=== PATIENT | female | born 1950 | race Caucasian/White ===

== ENCOUNTER → 2021-12-10 | Outpatient (CLI) | payer MEDICARE, BC, SELFPAY ==
--- NOTE | 2021-12-10 11:23 | RAD_ITS ---
INDICATION: CALCULUS OF URETER EXAMINATION/TECHNIQUE: X-RAY - XR Abdomen 1 View COMPARISON: None FINDINGS: BOWEL GAS PATTERN: Normal nonobstructive bowel gas pattern. FREE AIR: Not assessed on a single supine view. RADIOPAQUE FOREIGN BODIES: None. CALCIFICATIONS: None. LOWER CHEST: No acute findings. BONES AND SOFT TISSUES: No acute findings. RAD/Abdomen Single View IMPRESSION: No renal calculi. Electronically Signed: David Dalton, at 14:26 EDT ,
== END | disposition home or self-care (01) ==
LOC: RAD 11:04
PROVIDERS: PCP Preventive Medicine Occupational Medicine; Visit Provider Urology
DX: N20.1 Calculus of ureter (principal)
CPT/HCPCS: 74018

== ENCOUNTER 2024-08-16 10:30 | Outpatient (RCR) | payer MEDICARE, BC, SELFPAY ==
[2024-08-09 10:18] VITALS: BP 144/58; PULSE 61; RESP 18; TEMP 36.6
--- NOTE | 2024-08-09 11:13 | PCM.WC.HP ---
History of Present Illness Date of Service: 08/09/24 Chief Complaint: Left leg wound History of Wound: Ms. Mcnamara is a 74-year-old who presents to the wound center due to nonhealing left leg wound. Slipped 2 weeks ago while getting out of her son's truck. Sustained injury to her left lower extremity. Due to size, took her to the emergency room where she had it cleaned and was also given antibiotics which she states that she completed a few days ago. states that he has been cleaning it daily and applying Vaseline. They were concerned that it was not healing so presented here. History of diabetes mellitus type 2, she believes that her most recent A1c was 6.9. No tobacco abuse. Feels well for the most part. Denies chills, fever, change in bowel habit or any other concerns at this time. [facility] Medical History (Updated 08/09/24 @ 11:[address] Adele Jacques MD) Type 2 diabetes mellitus Non-healing wound of lower extremity Open wound of lower extremity with complication Home Medications ?Medication ?Instructions ?Recorded ?Last Taken ?Type atorvastatin 20 mg tablet mg DAILY 08/09/24 08/09/24 History cephalexin 500 mg capsule 500 mg PO 08/09/24 Unknown History gabapentin 400 mg capsule mg 08/09/24 Unknown History losartan 25 mg tablet mg DAILY 08/09/24 Unknown History metformin 500 mg tablet mg 08/09/24 Unknown History ROS Constitutional Constitutional: Denies body ache(s), chills, fatigue, fever(s), headache(s) or poor appetite Eyes Eyes: Denies change in eye color, change in vision, discharge from eye(s), discongugate gaze, double vision or excessive blinking ENT HEENT: Denies dysphagia, ear discharge, epistaxis, facial pain, foreign body in nose, halitosis or hearing loss Cardiovascular Cardiovascular: Denies abdominal bloating, abdominal edema, bluish discoloration of hand/feet, chest pain or dyspnea at rest Respiratory/Chest Respiratory/Chest: Denies difficulty clearing secretions, dusky skin, excessive phlegm production, hemoptysis, hoarseness or inability to speak Gastrointestinal Gastrointestinal: Denies abdominal pain, bloating, change in bowel habits, chewing difficulty, coffee ground emesis or fecal incontinence Genitourinary Genitourinary: Denies abdominal discomfort, anuria, contractions, difficulty urinating or flank pain Musculoskeletal Musculoskeletal: Reports extremity pain and limited range of motion; Denies muscle spasms, muscle weakness, numbness, tingling or tremors Integumentary Integumentary: Reports wounds; Denies bleeding lesions, change in hair, dry skin, furuncle, hirsutism or jaundice Neurologic Neurologic: Denies abnormal hearing, abnormal movements, abnormal speech, behavior changes, burning sensations, focal weakness, memory loss or seizures Psychiatric Psychiatric: Denies auditory hallucinations, behavioral changes, cognitive impairment, difficulty concentrating, hallucinations, irritability or memory loss Endocrine Endocrinology: Denies cold intolerance, deepening of the voice, excessive sweating, fatigue, heat intolerance or increase in ring/shoe/hat size Hematologic/Lymphatic Hematologic/Lymphatic: Denies anemia, easy bleeding or easy bruising Allergic/Immunologic Allergic/Immunologic: Denies throat swelling, tongue swelling, urticaria, eczemia or wheezing Vital Signs Vital Signs Vital Signs: 08/09/24 10:18 Temperature 98 F Temperature Source Temporal Pulse Rate 61 Respiratory Rate 18 Blood Pressure 144/58 H Blood Pressure Mean 86 Blood Pressure Source Monitor Blood Pressure Position Sitting Blood Pressure Location Left Arm Physical Exam Const alert, oriented x3 and no apparent distress General Appearance: cooperative and comfortable HEENT normocephalic, head/scalp atraumatic and hearing grossly normal bilaterally Eyes EOMs intact bilaterally Neck full ROM General: normal visual inspection Resp normal respiratory effort and normal air movement Effort and Inspection: able to speak in complete sentences Cardio regular rate, regular rhythm, S1 normal heart sound and S2 normal heart sound GI soft to palpation and non-tender Extremity General Extremity: edema Skin Wounds: wounds noted size Size: See clinical note, bed with slough, margins well approximated, no odor, open and surrounding erythema Neuro oriented x3, CN's II-XII intact bilaterally and moves all extremities Psych mental status grossly normal, thought process normal, cooperative and affect normal Debridement Note Debridement Note Wound debrided: Left lower extremity (superior) Anesthesia Used: 5% Lidocaine Gel Depth: Down to and including healthy tissue and in the subcutaneous layer Percentage of wound debrided: 100 Instrument Used: 7mm curette Tissue Removed: Slough and devitalized tissue Severity: Fat Layer Exposed Amount of bleeding with debridement: Mild Bleeding Controlled with: Pressure Patient tolerated procedure: Patient tolerated procedure well Post-Debridement Measurements and Additional Note: Post-Debridement Measurements/Treatment WC - Nurse 1 - General Ulcer Assessment Start: 08/09/24 10:06 Freq: Status: Active Protocol: JASMYNE Activity Type Activity Date Activity User E-sign Co-sign Detail Recorded Client Recorded Date Recorded By Document 08/09/24 10:18 [place] [id number] 08/09/24 10:32 W[place] 08/09/24 10:18 WC - Today's Visit Information Type of service Initial Visit Arrival Mode Ambulatory Accompanied by Patient Identification Verified (Name & Yes ) Safety Precautions Fall Prevention Finger Stick Blood Sugar(mg/dl) (if 124 indicated): Blood Sugar Stated by Patient Vital Signs Temperature (97.8 F-99.1 F) 98 F Temperature Source Temporal Pulse Rate (60-100) 61 Pulse Location Monitor Respiratory Rate (12-18) 18 Respiratory rate source Observation Blood Pressure (90/60-120/80) 144/58 H Blood Pressure Mean 86 Source Monitor Position Sitting Blood Pressure Location Left Arm History Since Last Visit- (Skip if this is Patient's initial visit) Left Footwear Regular Shoe Right Footwear Regular Shoe Pain Scale: 0-10 Numeric Is Patient Pain Free? No NACHO - Nurse 1 - General Ulcer Measurement Start: 08/09/24 10:06 Freq: Status: Active Protocol: Activity Type Activity Date Activity User E-sign Co-sign Detail Recorded Client Recorded Date Recorded By Document 08/09/24 10:18 W[place] [id number] 08/09/24 10:32 W[place] 08/09/24 10:18 Wound Center Nurse 1 #2 Left Inferior Moreno -Current Size (cm) - Length 2.5 -Current Size (cm) - Width 3.0 -Current Size (cm) - Depth 0.1 -Total Square Cm 7.50 -Date of Last Picture (Recall this 08/09/24 field) -Photo Taken Yes -Tunneling No -Undermining/Tunneling No -Circular Undermining No -Exudate Amt Medium -Exudate Type Serosanguineous -Wound Margin Flat & Intact -Granulation Amt Medium (34-66%) -Granulation Quality Pale,[place] -Necrosis Amt Medium (34-66%) -Necrotic Tissue Type Adherent Slough -Texture (Sheela-wound Skin Appearance) Assessed, Induration, Localized Edema -Moisture (Sheela-wound Skin Appearance) Assessed, Maceration -Color (Sheela-wound Skin Appearance) Assessed, Hemosiderin Staining -Temperature (Sheela-wound Skin No Abnormality Appearance) (Pt Warm) -Tenderness on Palpation (Sheela-wound No Skin Appearance) -Ulcer Cleansing Soap and Water -Foul Odor after Cleansing No -Anesthetic Used 5% Lidocaine Gel #1 Left Superior Moreno -Current Size (cm) - Length 7.1 -Current Size (cm) - Width 4.0 -Current Size (cm) - Depth 0.1 -Total Square Cm 28.40 -Date of Last Picture (Recall this 08/09/24 field) -Photo Taken Yes -Tunneling No -Undermining/Tunneling No -Circular Undermining No -Exudate Amt Medium -Exudate Type Serosanguineous -Wound Margin Flat & Intact -Granulation Amt Medium (34-66%) -Granulation Quality Pale,[place] -Necrosis Amt Medium (34-66%) -Necrotic Tissue Type Adherent Slough -Texture (Sheela-wound Skin Appearance) Assessed, Induration -Moisture (Sheela-wound Skin Appearance) Assessed -Color (Sheela-wound Skin Appearance) Assessed, Hemosiderin Staining -Temperature (Sheela-wound Skin No Abnormality Appearance) (Pt Warm) -Tenderness on Palpation (Sheela-wound No Skin Appearance) -Ulcer Cleansing Soap and Water -Foul Odor after Cleansing No -Anesthetic Used 5% Lidocaine Gel Left Calf (cm) 37 Left Ankle (cm) 22.5 WC - Nurse 2 - General Ulcer CM Notes Start: 08/09/24 10:06 Freq: Status: Active Protocol: Activity Type Activity Date Activity User E-sign Co-sign Detail Recorded Client Recorded Date Recorded By Document 08/09/24 10:45 [id number] 08/09/24 10:59 GM 08/09/24 10:45 Wound Center Nurse 2 #2 Left Inferior Moreno -Time 10:47 -Correct Patient Yes -Correct Side, Site, Position Yes -Correct Procedure Yes -Procedure Performed Yes -Type of Procedure Debridement -Clinical Debridement Subcutaneous -Tissue Removed Subcutaneous -Post Debridement (cm) - Length 2.0 -Post Debridement (cm) - Width 2.5 -Post Debridement (cm) - Depth 0.1 -Total Square (Post) (cm) 5.00 -Area of Debridement (cm) - Length 2.0 -Area of Debridement (cm) - Width 2.5 -Total Square (Area) (cm) 5.00 -Tunneling No -Undermining/Tunneling No -Circular Undermining No -Wound/Ulcer Outcome Not Healed -Ulcer Cleansing Rinsed/ Irrigated with Saline -Foul Odor after Cleansing No -Bioengineered Tissue No -Bleeding Controlled with Pressure -Treatment Response Procedure Tolerated Well -Debridement - Subq, 1st 20sq cm No #1 Left Superior Moreno -Time 10:47 -Correct Patient Yes -Correct Side, Site, Position Yes -Correct Procedure Yes -Procedure Performed Yes -Type of Procedure Debridement -Clinical Debridement Subcutaneous -Tissue Removed Subcutaneous -Post Debridement (cm) - Length 7.0 -Post Debridement (cm) - Width 4.5 -Post Debridement (cm) - Depth 0.1 -Total Square (Post) (cm) 31.50 -Area of Debridement (cm) - Length 7.0 -Area of Debridement (cm) - Width 4.5 -Total Square (Area) (cm) 31.50 -Tunneling No -Undermining/Tunneling No -Circular Undermining No -Wound/Ulcer Outcome Not Healed -Ulcer Cleansing Rinsed/ Irrigated with Saline -Foul Odor after Cleansing No -Bioengineered Tissue No -Bleeding Controlled with Pressure -Treatment Response Procedure Tolerated Well -Debridement - Subq, 1st 20sq cm Yes -Debridement, SubQ, ea addt'l 20sq cm 1 or part thereof Pain Scale: 0-10 Numeric Is Patient Pain Free? Yes Additional Wound Wound debrided: Left lower extremity (inferior) Type of Debridement: Excisional debridement Depth: Down to and including healthy tissue and in the subcutaneous layer Percentage of wound debrided: 100 Instrument Used: 7mm curette Tissue Removed: Slough and devitalized tissue Severity: Fat Layer Exposed Amount of bleeding with debridement: Mild Bleeding Controlled with: Compression and gauze Patient tolerated procedure: Patient tolerated procedure well Charges/Coding Visit Charges Office Visits / Consults: [id number] OV L3 New 30min Procedures Integumentary [id number]: [id number] Steffany subq tissue 20 sq cm/< Add On Codes: 22957 Steffany subq tissue add-on (x1 additional square centimeter debrided, please refer to clinical note.) Assessment/Plan Assessment/Plan (1) Open wound of lower extremity with complication: CODE(S): S81.809A - Unspecified open wound, unspecified lower leg, initial encounter (2) Non-healing wound of lower extremity: CODE(S): S81.809A - Unspecified open wound, unspecified lower leg, initial encounter (3) Type 2 diabetes mellitus: CODE(S): E11.9 - Type 2 diabetes mellitus without complications PLAN: Plan Debridement done as documented above, procedure was fairly well-tolerated. No significant concerns for infection at this time, recently completed antibiotics. For now, Aquacel extra to both ulcers, cover with Adaptic. Change daily to twice daily depending on drainage. History of diabetes mellitus type 2, good control. Continue optimal diabetes control. Optimal protein intake also discussed, patient and significant other voiced understanding. Double layer Tubigrip for edema management. Elevation and exercise as tolerated. The questions were answered and they were advised to let us know if they have any further questions or concerns, they voiced understanding. This note was generated with [employer] dictation software. It may contain incorrect words, spelling, and punctuation that were not noted in checking the note before signing.
--- NOTE | 2024-08-10 14:12 | WC ---
PHOTO 08/09/24 LEFT SUP DAVISON/LEFT INT DAVISON
[2024-08-16 10:47] VITALS: BP 139/78; PULSE 68; RESP 18; TEMP 36.6
--- NOTE | 2024-08-16 13:49 | PCM.WC.PN ---
History of Present Illness Date of Service: 08/16/24 Chief Complaint: Left leg wound History of Wound: Ms. Mcnamara is a 74-year-old who presents to the wound center due to nonhealing left leg wound. Slipped 2 weeks ago while getting out of her son's truck. Sustained injury to her left lower extremity. Due to size, took her to the emergency room where she had it cleaned and was also given antibiotics which she states that she completed a few days ago. states that he has been cleaning it daily and applying Vaseline. They were concerned that it was not healing so presented here. History of diabetes mellitus type 2, she believes that her most recent A1c was 6.9. No tobacco abuse. Feels well for the most part. Denies chills, fever, change in bowel habit or any other concerns at this time. Progress of Wound: No new concerns at this time. Improvement noted. Objective Data Objective Data Vital Signs: Vital Signs Temp Pulse Resp BP O2 Del Method 97.9 F 68 18 139/78 H Room Air 08/16/24 10:47 08/16/24 10:47 08/16/24 10:47 08/16/24 10:47 08/16/24 10:47 Oxygen Delivery Method Room Air Charges/Coding Procedures Integumentary 111xxx-113xx: 72378 Steffany subq tissue 20 sq cm/< Physical Exam Const alert, oriented x3 and no apparent distress General Appearance: cooperative and comfortable HEENT normocephalic, head/scalp atraumatic and hearing grossly normal bilaterally Eyes EOMs intact bilaterally Neck full ROM General: normal visual inspection Resp normal respiratory effort Effort and Inspection: able to speak in complete sentences Extremity General Extremity: edema Skin Wounds: wounds noted size Size: See clinical note, bed granulating well, margins well approximated, no odor, open and surrounding erythema Neuro oriented x3, CN's II-XII intact bilaterally and moves all extremities Psych mental status grossly normal, thought process normal, cooperative and affect normal Debridement Note Debridement Note Wound debrided: Left lower extremity (superior) Type of Debridement: Excisional debridement Anesthesia Used: 5% Lidocaine Gel Depth: Down to and including healthy tissue and in the subcutaneous layer Percentage of wound debrided: 100 Instrument Used: 7mm curette Tissue Removed: Slough and devitalized tissue Severity: Fat Layer Exposed Amount of bleeding with debridement: Mild Bleeding Controlled with: Pressure Patient tolerated procedure: Patient tolerated procedure well Post-Debridement Measurements and Additional Note: Post-Debridement Measurements/Treatment WC - Nurse 1 - General Ulcer Assessment Start: 08/09/24 10:06 Freq: Status: Active Protocol: JASMYNE Activity Type Activity Date Activity User E-sign Co-sign Detail Recorded Client Recorded Date Recorded By Document 08/09/24 10:18 MT [id number] 08/09/24 10:32 MT Document 08/16/24 10:47 KW [id number] 08/16/24 11:06 KW 08/09/24 08/16/24 10:18 10:47 WC - Today's Visit Information Type of service Initial Visit Follow-up Visit (Physician/REIMBURSEMENT REPRESENTATIVE ) Arrival Mode Ambulatory Ambulatory Accompanied by Patient Identification Verified (Name & Yes Yes ) Safety Precautions Fall Prevention Finger Stick Blood Sugar(mg/dl) (if 124 indicated): Blood Sugar Stated by Patient Vital Signs Temperature (97.8 F-99.1 F) 98 F 97.9 F Temperature Source Temporal Temporal Pulse Rate (60-100) 61 68 Pulse Location Monitor Monitor Respiratory Rate (12-18) 18 18 Respiratory rate source Observation Observation Oxygen Delivery Method Room Air Blood Pressure (90/60-120/80) 144/58 H 139/78 H Blood Pressure Mean (mm Hg) 86 98 Source Monitor Monitor Position Sitting Semi-Fowlers Blood Pressure Location Left Arm Left Arm History Since Last Visit- (Skip if this is Patient's initial visit) Have you changed medications since your No last visit? Any new allergies or adverse reactions No Had a fall/change in ADL's that may No increase risk of falls Signs or symptoms of abuse and/or No neglect since last visit Have you been in the hospital since your No last visit? Has dressing in place as prescribed Yes Has compression in place as prescribed Yes Has offloadiing in place as prescribed N/A Experienced any changes in pain level or No management Left Footwear Regular Shoe Regular Shoe Right Footwear Regular Shoe Regular Shoe Pain Scale: 0-10 Numeric Is Patient Pain Free? No No NACHO Merchant Nurse 1 - General Ulcer Measurement Start: 08/09/24 10:06 Freq: Status: Active Protocol: Activity Type Activity Date Activity User E-sign Co-sign Detail Recorded Client Recorded Date Recorded By Document 08/09/24 10:18 MT [id number] 08/09/24 10:32 MT Document 08/16/24 10:47 KW [id number] 08/16/24 11:06 KW 08/09/24 08/16/24 10:18 10:47 Wound Center Nurse 1 #2 Left Inferior Moreno -Current Size (cm) - Length 2.5 1.5 -Current Size (cm) - Width 3.0 1.6 -Current Size (cm) - Depth 0.1 0.1 -Total Square Cm 7.50 2.40 -Date of Last Picture (Recall this 08/09/24 field) -Photo Taken Yes -Tunneling No -Undermining/Tunneling No -Circular Undermining No -Exudate Amt Medium Medium -Exudate Type Serosanguineous Serosanguineous -Wound Margin Flat & Intact Distinct, Outline Attached -Granulation Amt Medium (34-66%) Large (67-100%) -Granulation Quality Pale,Francisco Red -Necrosis Amt Medium (34-66%) Small (1-33%) -Necrotic Tissue Type Adherent Slough Eschar -Texture (Sheela-wound Skin Appearance) Assessed, Assessed Induration, Localized Edema -Moisture (Sheela-wound Skin Appearance) Assessed, Assessed Maceration -Color (Sheela-wound Skin Appearance) Assessed, Assessed, Hemosiderin Hemosiderin Staining Staining -Temperature (Sheela-wound Skin No Abnormality No Abnormality Appearance) (Pt Warm) (Pt Warm) -Tenderness on Palpation (Sheela-wound No No Skin Appearance) -Ulcer Cleansing Soap and Water Soap and Water -Foul Odor after Cleansing No No -Anesthetic Used 5% Lidocaine 4% Lidocaine Gel Solution,5% Lidocaine Gel #1 Left Superior [place] -Current Size (cm) - Length 7.1 5.2 -Current Size (cm) - Width 4.0 2.9 -Current Size (cm) - Depth 0.1 0.1 -Total Square Cm 28.40 15.08 -Date of Last Picture (Recall this 08/09/24 field) -Photo Taken Yes -Tunneling No -Undermining/Tunneling No -Circular Undermining No -Exudate Amt Medium Small -Exudate Type Serosanguineous Serosanguineous -Wound Margin Flat & Intact Distinct, Outline Attached -Granulation Amt Medium (34-66%) Large (67-100%) -Granulation Quality Pale,Francisco Francisco,Red -Necrosis Amt Medium (34-66%) Small (1-33%) -Necrotic Tissue Type Adherent Slough Eschar -Texture (Sheela-wound Skin Appearance) Assessed, Assessed Induration -Moisture (Sheela-wound Skin Appearance) Assessed Assessed -Color (Sheela-wound Skin Appearance) Assessed, Assessed, Hemosiderin Erythema, Staining Hemosiderin Staining -Temperature (Sheela-wound Skin No Abnormality No Abnormality Appearance) (Pt Warm) (Pt Warm) -Tenderness on Palpation (Sheela-wound No No Skin Appearance) -Ulcer Cleansing Soap and Water Soap and Water -Foul Odor after Cleansing No No -Anesthetic Used 5% Lidocaine 4% Lidocaine Gel Solution,5% Lidocaine Gel Left Calf (cm) 37 37 Left Ankle (cm) 22.5 22 WC - Nurse 2 - General Ulcer CM Notes Start: 08/09/24 10:06 Freq: Status: Active Protocol: Activity Type Activity Date Activity User E-sign Co-sign Detail Recorded Client Recorded Date Recorded By Document 08/09/24 10:45 [id number] 08/09/24 10:59 Document 08/16/24 11:19 [id number] 08/16/24 11:26 08/09/24 08/16/24 10:45 11:19 Wound Center Nurse 2 #2 Left Inferior Moreno -Time 10:47 11:23 -Correct Patient Yes Yes -Correct Side, Site, Position Yes Yes -Correct Procedure Yes Yes -Procedure Performed Yes Yes -Type of Procedure Debridement Debridement -Clinical Debridement Subcutaneous Subcutaneous -Tissue Removed Subcutaneous Subcutaneous -Post Debridement (cm) - Length 2.0 1.6 -Post Debridement (cm) - Width 2.5 2.0 -Post Debridement (cm) - Depth 0.1 0.1 -Total Square (Post) (cm) 5.00 3.20 -Area of Debridement (cm) - Length 2.0 1.6 -Area of Debridement (cm) - Width 2.5 2.0 -Total Square (Area) (cm) 5.00 3.20 -Tunneling No No -Undermining/Tunneling No No -Circular Undermining No No -Wound/Ulcer Outcome Not Healed Not Healed -Ulcer Cleansing Rinsed/ Rinsed/ Irrigated with Irrigated with Saline Saline -Foul Odor after Cleansing No No -Bioengineered Tissue No No -Bleeding Controlled with Pressure Pressure -Treatment Response Procedure Procedure Tolerated Well Tolerated Well -Debridement - Subq, 1st 20sq cm No No #1 Left Superior Moreno -Time 10:47 11:23 -Correct Patient Yes Yes -Correct Side, Site, Position Yes Yes -Correct Procedure Yes Yes -Procedure Performed Yes Yes -Type of Procedure Debridement Debridement -Clinical Debridement Subcutaneous Subcutaneous -Tissue Removed Subcutaneous Subcutaneous -Post Debridement (cm) - Length 7.0 5.0 -Post Debridement (cm) - Width 4.5 3.4 -Post Debridement (cm) - Depth 0.1 0.1 -Total Square (Post) (cm) 31.50 17.00 -Area of Debridement (cm) - Length 7.0 5.0 -Area of Debridement (cm) - Width 4.5 3.4 -Total Square (Area) (cm) 31.50 17.00 -Tunneling No No -Undermining/Tunneling No No -Circular Undermining No No -Wound/Ulcer Outcome Not Healed Not Healed -Ulcer Cleansing Rinsed/ Rinsed/ Irrigated with Irrigated with Saline Saline -Foul Odor after Cleansing No No -Bioengineered Tissue No No -Bleeding Controlled with Pressure Pressure -Treatment Response Procedure Procedure Tolerated Well Tolerated Well -Debridement - Subq, 1st 20sq cm Yes Yes -Debridement, SubQ, ea addt'l 20sq cm 1 1 or part thereof Pain Scale: 0-10 Numeric Is Patient Pain Free? Yes Yes - Nurse 3 - General Ulcer D/C NN Start: 08/09/24 10:06 Freq: Status: Active Protocol: Activity Type Activity Date Activity User E-sign Co-sign Detail Recorded Client Recorded Date Recorded By Document 08/09/24 11:18 [id number] 08/09/24 11:27 Document 08/16/24 11:53 [id number] 08/16/24 11:54 08/09/24 08/16/24 11:18 11:53 Wound Care Center Nurse 3 #2 Left Inferior Moreno -Ulcer Cleansing Not Cleansed -Foul Odor after Cleansing No -Primary Dressing Applied Aquacel Extra, Aquacel Extra NonAdherent Contact Layer -Primary Dressing Covered/Secured with Dry Gauze & Roll Gauze, Secured with Tape -Aquacel Extra 1 1 #1 Left Superior Moreno -Ulcer Cleansing Not Cleansed -Foul Odor after Cleansing No -Primary Dressing Applied Aquacel Extra NonAdherent Contact Layer -Other Dressing aquacel extra -Primary Dressing Covered/Secured with Dry Gauze & Roll Gauze, Secured with Tape -Aquacel Extra 1 Left -Lotion applied to leg before No compression wrap -Tubular Bandage Double Layer Double Layer -Size of Tubigrip Used Size E Size E -Size E ($) 2 2 Pain Scale: 0-10 Numeric Is Patient Pain Free? Yes Yes WC - Visit Discharge Discharge Condition Stable Stable Ambulatory Status Ambulatory Ambulatory Transportation Private Auto Private Auto Medication Reconcilliation completed & No provided to patient/care provider Clinical Summary of Care Provided Yes Additional Wound Wound debrided: Left lower extremity (inferior) Type of Debridement: Excisional debridement Anesthesia Used: 5% Lidocaine Gel Depth: Down to and including healthy tissue and in the subcutaneous layer Percentage of wound debrided: 100 Instrument Used: 7mm curette Tissue Removed: Slough and devitalized tissue Severity: Fat Layer Exposed Amount of bleeding with debridement: Mild Bleeding Controlled with: Pressure Patient tolerated procedure: Patient tolerated procedure well Assessment/Plan Assessment/Plan (1) Open wound of lower extremity with complication: CODE(S): S81.809A - Unspecified open wound, unspecified lower leg, initial encounter QUALIFIERS: Encounter type: subsequent encounter Laterality: left Qualified Code(s): S81.802D - Unspecified open wound, left lower leg, subsequent encounter PLAN: Left (2) Non-healing wound of lower extremity: CODE(S): S81.809A - Unspecified open wound, unspecified lower leg, initial encounter QUALIFIERS: Encounter type: subsequent encounter Laterality: left Qualified Code(s): S81.802D - Unspecified open wound, left lower leg, subsequent encounter PLAN: Left (3) Type 2 diabetes mellitus: CODE(S): E11.9 - Type 2 diabetes mellitus without complications PLAN: Plan Debridement done as documented above, procedure was fairly well-tolerated. Improving. No new concerns reported at this time. Continue Aquacel extra, cover with Adaptic and gauze. Change daily. Continue double layer Tubigrip for edema management, leg elevation and exercise as tolerated. Continue other chronic wound care measures. Their questions were answered and they were advised to let us know if they have any further questions or concerns. Follow-up in 2 weeks or sooner if needed. This note was generated with [employer] software. It may contain incorrect words, spelling, and punctuation that were not noted in checking the note before signing.
== END 2024-08-17 23:59 | disposition home or self-care (01) ==
LOC: WC 10:30
PROVIDERS: PCP Preventive Medicine Occupational Medicine; Referring Provider Preventive Medicine Occupational Medicine; Visit Provider Internal Medicine
DX: S81.812A Laceration without foreign body, left lower leg, initial encounter (principal); E11.9 Type 2 diabetes mellitus without complications; V58.4XXA Person boarding or alighting a pick-up truck or van injured in noncollision transport accident, initial encounter; Z79.84 Long term (current) use of oral hypoglycemic drugs; Z79.899 Other long term (current) drug therapy
CPT/HCPCS: 11042; 11045; 99203; G0463

== ENCOUNTER 2024-09-13 09:45 | Outpatient (RCR) | payer MEDICARE, BC, SELFPAY ==
[2024-08-18 02:43] VITALS: BP 139/78; PULSE 68; RESP 18; TEMP 36.6
[2024-08-30 10:32] VITALS: BP 134/64; PULSE 61; RESP 16; TEMP 36.2
--- NOTE | 2024-08-30 13:01 | PN.PCM_ITS ---
History of Present Illness Date of Service: 08/30/24 Chief Complaint: Left leg wound History of Wound: Ms. Mcnamara is a 74-year-old who presents to the wound center due to nonhealing left leg wound. Slipped 2 weeks ago while getting out of her son's truck. Sustained injury to her left lower extremity. Due to size, took her to the emergency room where she had it cleaned and was also given antibiotics which she states that she completed a few days ago. states that he has been cleaning it daily and applying Vaseline. They were concerned that it was not healing so presented here. History of diabetes mellitus type 2, she believes that her most recent A1c was 6.9. No tobacco a buse. Feels well for the most part. Denies chills, fever, change in bowel habit or any other concerns at this time. Progress of Wound: Improving. Minimal area left. No new concerns reported at this time. Objective Data Objective Data Vital Signs: Vital Signs Temp Pulse Resp BP O2 Del Method 97.1 F L 61 16 134/64 H Room Air 08/30/24 10:32 08/30/24 10:32 08/30/24 10:32 08/30/24 10:32 08/30/24 10:32 Oxygen Delivery Method Room Air Charges/Coding Procedures Integumentary 111xxx-113xx: 13997 Steffany subq tissue 20 sq cm/< (Selective debridement done today.) Physical Exam Const alert, oriented x3 and no apparent distress General Appearance: cooperative and comfortable HEENT normocephalic, head/scalp atraumatic and hearing grossly normal bilaterally Eyes EOMs intact bilaterally Neck full ROM General: normal visual inspection Resp normal respiratory effort Effort and Inspection: able to speak in complete sentences Extremity General Extremity: edema Skin Wounds: wounds noted size Size: See clinical note, bed granulating well, margins well approximated, no odor, open and surrounding erythema Neuro oriented x3, CN's II-XII intact bilaterally and moves all extremities Psych mental status grossly normal, thought process normal, cooperative and affect normal Debridement Note Debridement Note Wound debrided: Left lower extremity (superior) Type of Debridement: Selective debridement Anesthesia Used: 4% Lidocaine Solution and 5% Lidocaine Gel Depth: Down to and including healthy tissue Percentage of wound debrided: 100 Tissue Removed: Devitalized tissue Severity: Limited To Skin Breakdown Amount of bleeding with debridement: Mild Bleeding Controlled with: Pressure Patient tolerated procedure: Patient tolerated procedure well Post-Debridement Measurements and Additional Note: Post-Debridement Measurements/Treatment - Nurse 1 - General Ulcer Assessment Start: 08/30/24 10:32 Freq: Status: Active Protocol: JASMYNE Activity Type Activity Date Activity User E-sign Co-sign Detail Recorded Client Recorded Date Recorded By Document 08/30/24 10:32 BRIONNA [id number] 08/30/24 10:50 08/30/24 10:32 - Today's Visit Information Type of service Follow-up Visit (Physician/MANAGER PHARMACEUTICAL ) Arrival Mode Ambulatory Patient Identification Verified (Name & Yes ) Vital Signs Temperature (97.8 F-99.1 F) 97.1 F L Temperature Source Temporal Pulse Rate (60-100) 61 Pulse Location Monitor Respiratory Rate (12-18) 16 Respiratory rate source Observation Oxygen Delivery Method Room Air Blood Pressure (90/60-120/80) 134/64 H Blood Pressure Mean (mm Hg) 87 Source Monitor Position Semi-Fowlers Blood Pressure Location Left Forearm History Since Last Visit- (Skip if this is Patient's initial visit) Have you changed medications since your No last visit? Any new allergies or adverse reactions No Had a fall/change in ADL's that may No increase risk of falls Signs or symptoms of abuse and/or No neglect since last visit Have you been in the hospital since your No last visit? Has dressing in place as prescribed Yes Has compression in place as prescribed Yes Has offloadiing in place as prescribed N/A Experienced any changes in pain level or No management Left Footwear Regular Shoe Right Footwear Regular Shoe Pain Scale: 0-10 Numeric Is Patient Pain Free? Yes - Nurse 1 - General Ulcer Measurement Start: 08/30/24 10:32 Freq: Status: Active Protocol: Activity Type Activity Date Activity User E-sign Co-sign Detail Recorded Client Recorded Date Recorded By Document 08/30/24 10:32 BRIONNA [id number] 08/30/24 10:50 08/30/24 10:32 Wound Center Nurse 1 #2 Left Inferior Moreno -Current Size (cm) - Length 0.6 -Current Size (cm) - Width 1.5 -Current Size (cm) - Depth 0.1 -Total Square Cm 0.90 -Date of Last Picture (Recall this 08/30/24 field) -Epithelialization Large 67-100% -Exudate Amt None Present -Wound Margin Distinct, Outline Attached -Texture (Sheela-wound Skin Appearance) Assessed -Moisture (Sheela-wound Skin Appearance) Assessed -Color (Sheela-wound Skin Appearance) Assessed -Tenderness on Palpation (Sheela-wound No Skin Appearance) -Ulcer Cleansing Soap and Water -Foul Odor after Cleansing No -Anesthetic Used 4% Lidocaine Solution,5% Lidocaine Gel -Wound Comment(s) scabbed #1 Left Superior Moreno -Current Size (cm) - Length 4 -Current Size (cm) - Width 2 -Current Size (cm) - Depth 0.1 -Total Square Cm 8 -Date of Last Picture (Recall this 08/30/24 field) -Epithelialization Large 67-100% -Exudate Amt None Present -Wound Margin Distinct, Outline Attached -Texture (Sheela-wound Skin Appearance) Assessed -Moisture (Sheela-wound Skin Appearance) Assessed -Color (Sheela-wound Skin Appearance) Assessed -Temperature (Sheela-wound Skin No Abnormality Appearance) (Pt Warm) -Tenderness on Palpation (Sheela-wound No Skin Appearance) -Ulcer Cleansing Soap and Water -Foul Odor after Cleansing No -Anesthetic Used 4% Lidocaine Solution,5% Lidocaine Gel -Wound Comment(s) scabbed Left Calf (cm) 36.5 Left Ankle (cm) 21.5 WC - Nurse 2 - General Ulcer CM Notes Start: 08/30/24 10:32 Freq: Status: Active Protocol: Activity Type Activity Date Activity User E-sign Co-sign Detail Recorded Client Recorded Date Recorded By Document 08/30/24 10:54 [id number] 08/30/24 11:01 08/30/24 10:54 Wound Center Nurse 2 #2 Left Inferior Moreno -Time 10:55 -Correct Patient Yes -Correct Side, Site, Position Yes -Correct Procedure No -Procedure Performed No -Wound/Ulcer Outcome Healed- Epithelialized -Ulcer Cleansing Not Cleansed -Foul Odor after Cleansing No -Bioengineered Tissue No -Bleeding Controlled with NA -Offloading No #1 Left Superior Moreno -Time 10:56 -Correct Patient Yes -Correct Side, Site, Position Yes -Correct Procedure Yes -Procedure Performed Yes -Type of Procedure Debridement -Clinical Debridement Epidermis / Dermis -Tissue Removed Epidermis -Post Debridement (cm) - Length 0.4 -Post Debridement (cm) - Width 0.6 -Post Debridement (cm) - Depth 0.1 -Total Square (Post) (cm) 0.24 -Area of Debridement (cm) - Length 0.4 -Area of Debridement (cm) - Width 0.6 -Total Square (Area) (cm) 0.24 -Tunneling No -Undermining/Tunneling No -Circular Undermining No -Wound/Ulcer Outcome Not Healed -Ulcer Cleansing Rinsed/ Irrigated with Saline -Foul Odor after Cleansing No -Bioengineered Tissue No -Bleeding Controlled with Pressure -Treatment Response Procedure Tolerated Well -Debridement - Open, 1st 20sq cm Yes Pain Scale: 0-10 Numeric Is Patient Pain Free? Yes - Nurse 3 - General Ulcer D/C NN Start: 08/30/24 10:32 Freq: Status: Active Protocol: Activity Type Activity Date Activity User E-sign Co-sign Detail Recorded Client Recorded Date Recorded By Document 08/30/24 11:09 [id number] 08/30/24 11:10 08/30/24 11:09 Wound Care Center Nurse 3 #2 Left Inferior Moreno -Ulcer Cleansing Not Cleansed -Foul Odor after Cleansing No -Primary Dressing Applied Aquacel Extra, NonAdherent Contact Layer -Primary Dressing Covered/Secured with Dry Gauze & Roll Gauze, Secured with Tape -Aquacel Extra 1 #1 Left Superior More[place] -Ulcer Cleansing Not Cleansed -Primary Dressing Covered/Secured with Dry Gauze Left -Lotion applied to leg before No compression wrap -Tubular Bandage Double Layer -Size of Tubigrip Used Size E -Size E ($) 4 Pain Scale: 0-10 Numeric Is Patient Pain Free? Yes - Visit Discharge Discharge Condition Stable Ambulatory Status Ambulatory Transportation Private Auto Assessment/Plan Assessment/Plan (1) Open wound of lower extremity with complication: CODE(S): S81.809A - Unspecified open wound, unspecified lower leg, initial encounter QUALIFIERS: Encounter type: subsequent encounter Laterality: left Qualified Code(s): S81.802D - Unspecified open wound, left lower leg, subsequent encounter PLAN: Left (2) Non-healing wound of lower extremity: CODE(S): S81.809A - Unspecified open wound, unspecified lower leg, initial encounter QUALIFIERS: Encounter type: subsequent encounter Laterality: left Qualified Code(s): S81.802D - Unspecified open wound, left lower leg, subsequent encounter PLAN: Left (3) Type 2 diabetes mellitus: CODE(S): E11.9 - Type 2 diabetes mellitus without complications PLAN: Plan Debridement done as documented above, procedure was well-tolerated. Very good improvement since her last visit, very minimal area left. Continue Aquacel extra to open areas, cover with Adaptic and gauze. Change daily. Continue double layer Tubigrip for edema management, leg elevation and exercise as tolerated. Continue other chronic wound care measures. Moisturizing adequately also emphasized, patient and voiced understanding. Their questions were answered and they were advised to let us know if they have any further questions or concerns. Follow-up in 2 weeks or sooner if needed. This note was generated with [employer] dictation software. It may contain incorrect words, spelling, and punctuation that were not noted in checking the note before signing.
--- NOTE | 2024-08-31 09:37 | WC ---
PHOTO 08/30/24 LEFT INT DAVISON
--- NOTE | 2024-08-31 09:38 | WC ---
PHOTO 08/30/24 LEFT SUP DAVISON
[2024-09-13 09:53] VITALS: BP 156/59; PULSE 62; RESP 18; TEMP 36
--- NOTE | 2024-09-13 10:37 | PN.PCM_ITS ---
History of Present Illness Date of Service: 09/13/24 Chief Complaint: Left leg wound History of Wound: Ms. Mcnamara is a 74-year-old who presents to the wound center due to nonhealing left leg wound. Slipped 2 weeks ago while getting out of her son's truck. Sustained injury to her left lower extremity. Due to size, took her to the emergency room where she had it cleaned and was also given antibiotics which she states that she completed a few days ago. states that he has been cleaning it daily and applying Vaseline. They were concerned that it was not healing so presented here. History of diabetes mellitus type 2, she believes that her most recent A1c was 6.9. No tobacco a buse. Feels well for the most part. Denies chills, fever, change in bowel habit or any other concerns at this time. Progress of Wound: No acute concerns at this time. Some superficial areas of opening clustered around. Objective Data Objective Data Vital Signs: Vital Signs Temp Pulse Resp BP O2 Del Method 96.8 F L 62 18 156/59 H Room Air 09/13/24 09:53 09/13/24 09:53 09/13/24 09:53 09/13/24 09:53 08/30/24 10:32 Oxygen Delivery Method Room Air Charges/Coding Procedures Integumentary 111xxx-113xx: 51366 Steffany subq tissue 20 sq cm/< (Superficial/dermal debridement done today.) Physical Exam Const alert, oriented x3 and no apparent distress General Appearance: cooperative and comfortable HEENT normocephalic, head/scalp atraumatic and hearing grossly normal bilaterally Eyes EOMs intact bilaterally Neck full ROM General: normal visual inspection Resp normal respiratory effort Effort and Inspection: able to speak in complete sentences Extremity General Extremity: edema Skin Wounds: wounds noted size Size: See clinical note, bed granulating well, margins well approximated, no odor and open Neuro oriented x3, CN's II-XII intact bilaterally and moves all extremities Psych mental status grossly normal, thought process normal, cooperative and affect normal Debridement Note Debridement Note Wound debrided: Left lower extremity Anesthesia Used: 5% Lidocaine Gel Depth: Down to and including healthy tissue Percentage of wound debrided: 100 Severity: Limited To Skin Breakdown Amount of bleeding with debridement: Mild Bleeding Controlled with: Pressure Patient tolerated procedure: Patient tolerated procedure well Post-Debridement Measurements and Additional Note: Post-Debridement Measurements/Treatment - Nurse 1 - General Ulcer Assessment Start: 08/30/24 10:32 Freq: Status: Active Protocol: JASMYNE Activity Type Activity Date Activity User E-sign Co-sign Detail Recorded Client Recorded Date Recorded By Document 08/30/24 10:32 KW [id number] 08/30/24 10:50 KW Document 09/13/24 09:53 RB [id number] 09/13/24 09:57 RB 08/30/24 09/13/24 10:32 09:53 WC - Today's Visit Information Type of service Follow-up Visit Follow-up Visit (Physician/INTERNET SALES CONSULTANT (Physician/INTERNET SALES CONSULTANT ) ) Arrival Mode Ambulatory Ambulatory Transfer Assistance None Patient Identification Verified (Name & Yes Yes ) Patient Requires Transmission-Based No Precautions Vital Signs Temperature (97.8 F-99.1 F) 97.1 F L 96.8 F L Temperature Source Temporal Temporal Pulse Rate (60-100) 61 62 Pulse Location Monitor Monitor Respiratory Rate (12-18) 16 18 Respiratory rate source Observation Observation Oxygen Delivery Method Room Air Blood Pressure (90/60-120/80) 134/64 H 156/59 H Blood Pressure Mean (mm Hg) 87 91 Source Monitor Monitor Position Semi-Fowlers Semi-Fowlers Blood Pressure Location Left Forearm Left Arm History Since Last Visit- (Skip if this is Patient's initial visit) Have you changed medications since your No No last visit? Any new allergies or adverse reactions No No Had a fall/change in ADL's that may No No increase risk of falls Signs or symptoms of abuse and/or No No neglect since last visit Have you been in the hospital since your No No last visit? Has dressing in place as prescribed Yes Yes Has compression in place as prescribed Yes N/A Has offloadiing in place as prescribed N/A N/A Experienced any changes in pain level or No No management Left Footwear Regular Shoe Right Footwear Regular Shoe Pain Scale: 0-10 Numeric Is Patient Pain Free? Yes Yes - Nurse 1 - General Ulcer Measurement Start: 08/30/24 10:32 Freq: Status: Active Protocol: Activity Type Activity Date Activity User E-sign Co-sign Detail Recorded Client Recorded Date Recorded By Document 08/30/24 10:32 KW [id number] 08/30/24 10:50 KW Document 09/13/24 09:53 RB [id number] 09/13/24 09:57 RB 08/30/24 09/13/24 10:32 09:53 Wound Center Nurse 1 #2 Left Inferior Moreno -Combined with other wound No -Current Size (cm) - Length 0.6 0.1 -Current Size (cm) - Width 1.5 0.1 -Current Size (cm) - Depth 0.1 0.1 -Total Square Cm 0.90 0.01 -Date of Last Picture (Recall this 08/30/24 field) -Photo Taken Yes -Epithelialization Large 67-100% -Tunneling No -Undermining/Tunneling No -Circular Undermining No -Exudate Amt None Present Medium -Exudate Type Serosanguineous -Wound Margin Distinct, Distinct, Outline Outline Attached Attached -Granulation Amt Medium (34-66%) -Granulation Quality [place] -Slough/Fibrin Yes -Necrosis Amt Small (1-33%) -Necrotic Tissue Type Adherent Slough -Structure Exposed N/A -Texture (Sheela-wound Skin Appearance) Assessed Assessed, Scarring -Moisture (Sheela-wound Skin Appearance) Assessed Assessed -Color (Sheela-wound Skin Appearance) Assessed Assessed -Temperature (Sheela-wound Skin No Abnormality Appearance) (Pt Warm) -Tenderness on Palpation (Sheela-wound No No Skin Appearance) -Ulcer Cleansing Soap and Water Wound Cleanser -Foul Odor after Cleansing No No -Anesthetic Used 4% Lidocaine 5% Lidocaine Solution,5% Gel Lidocaine Gel -Wound Comment(s) scabbed #1 Left Superior Moreno -Combined with other wound No -Current Size (cm) - Length 4 0.1 -Current Size (cm) - Width 2 0.1 -Current Size (cm) - Depth 0.1 0.1 -Total Square Cm 8 0.01 -Date of Last Picture (Recall this 08/30/24 field) -Photo Taken Yes -Epithelialization Large 67-100% -Tunneling No -Undermining/Tunneling No -Circular Undermining No -Exudate Amt None Present Medium -Exudate Type Serosanguineous -Wound Margin Distinct, Distinct, Outline Outline Attached Attached -Granulation Amt Medium (34-66%) -Granulation Quality [place] -Slough/Fibrin Yes -Necrosis Amt Medium (34-66%) -Necrotic Tissue Type Adherent Slough -Structure Exposed N/A -Texture (Sheela-wound Skin Appearance) Assessed Assessed, Scarring -Moisture (Sheela-wound Skin Appearance) Assessed Assessed -Color (Sheela-wound Skin Appearance) Assessed Assessed -Temperature (Sheela-wound Skin No Abnormality No Abnormality Appearance) (Pt Warm) (Pt Warm) -Tenderness on Palpation (Sheela-wound No No Skin Appearance) -Ulcer Cleansing Soap and Water Wound Cleanser -Foul Odor after Cleansing No No -Anesthetic Used 4% Lidocaine 5% Lidocaine Solution,5% Gel Lidocaine Gel -Wound Comment(s) scabbed Left Calf (cm) 36.5 Left Ankle (cm) 21.5 WC - Nurse 2 - General Ulcer CM Notes Start: 08/30/24 10:32 Freq: Status: Active Protocol: Activity Type Activity Date Activity User E-sign Co-sign Detail Recorded Client Recorded Date Recorded By Document 08/30/24 10:54 [id number] 08/30/24 11:01 Document 09/13/24 10:18 [id number] 09/13/24 10:22 08/30/24 09/13/24 10:54 10:18 Wound Center Nurse 2 #2 Left Inferior Moreno -Time 10:55 10:18 -Correct Patient Yes Yes -Correct Side, Site, Position Yes Yes -Correct Procedure No No -Procedure Performed No No -Tunneling No -Undermining/Tunneling No -Circular Undermining No -Wound/Ulcer Outcome Healed- Healed- Epithelialized Epithelialized -Ulcer Cleansing Not Cleansed Rinsed/ Irrigated with Saline -Foul Odor after Cleansing No No -Bioengineered Tissue No No -Bleeding Controlled with NA NA -Offloading No #1 Left Superior Moreno -Time 10:56 10:21 -Correct Patient Yes Yes -Correct Side, Site, Position Yes Yes -Correct Procedure Yes Yes -Procedure Performed Yes Yes -Type of Procedure Debridement Debridement -Clinical Debridement Epidermis / Epidermis / Dermis Dermis -Tissue Removed Epidermis Dermis -Post Debridement (cm) - Length 0.4 3.5 -Post Debridement (cm) - Width 0.6 2.0 -Post Debridement (cm) - Depth 0.1 0.1 -Total Square (Post) (cm) 0.24 7.00 -Area of Debridement (cm) - Length 0.4 3.5 -Area of Debridement (cm) - Width 0.6 2.0 -Total Square (Area) (cm) 0.24 7.00 -Tunneling No No -Undermining/Tunneling No No -Circular Undermining No No -Wound/Ulcer Outcome Not Healed Not Healed -Ulcer Cleansing Rinsed/ Rinsed/ Irrigated with Irrigated with Saline Saline -Foul Odor after Cleansing No No -Bioengineered Tissue No No -Bleeding Controlled with Pressure Pressure -Treatment Response Procedure Procedure Tolerated Well Tolerated Well -Debridement - Open, 1st 20sq cm Yes Yes Pain Scale: 0-10 Numeric Is Patient Pain Free? Yes Yes - Nurse 3 - General Ulcer D/C NN Start: 08/30/24 10:32 Freq: Status: Active Protocol: Activity Type Activity Date Activity User E-sign Co-sign Detail Recorded Client Recorded Date Recorded By Document 08/30/24 11:09 [id number] 08/30/24 11:10 08/30/24 11:09 Wound Care Center Nurse 3 #2 Left Inferior Moreno -Ulcer Cleansing Not Cleansed -Foul Odor after Cleansing No -Primary Dressing Applied Aquacel Extra, NonAdherent Contact Layer -Primary Dressing Covered/Secured with Dry Gauze & Roll Gauze, Secured with Tape -Aquacel Extra 1 #1 Left Superior Moreno -Ulcer Cleansing Not Cleansed -Primary Dressing Covered/Secured with Dry Gauze Left -Lotion applied to leg before No compression wrap -Tubular Bandage Double Layer -Size of Tubigrip Used Size E -Size E ($) 4 Pain Scale: 0-10 Numeric Is Patient Pain Free? Yes - Visit Discharge Discharge Condition Stable Ambulatory Status Ambulatory Transportation Private Auto Assessment/Plan Assessment/Plan (1) Open wound of lower extremity with complication: CODE(S): S81.809A - Unspecified open wound, unspecified lower leg, initial encounter QUALIFIERS: Encounter type: subsequent encounter Laterality: left Qualified Code(s): S81.802D - Unspecified open wound, left lower leg, subsequent encounter PLAN: Left (2) Non-healing wound of lower extremity: CODE(S): S81.809A - Unspecified open wound, unspecified lower leg, initial encounter QUALIFIERS: Encounter type: subsequent encounter Laterality: left Qualified Code(s): S81.802D - Unspecified open wound, left lower leg, subsequent encounter PLAN: Left (3) Type 2 diabetes mellitus: CODE(S): E11.9 - Type 2 diabetes mellitus without complications PLAN: Plan Debridement done as documented above, procedure was well-tolerated. Some clustered areas of superficial skin breakdown/opening. Switch to Promogran, moistened. Cover with Adaptic and gauze. Change daily. Continue double layer Tubigrip for edema management, leg elevation and exercise as tolerated. Continue other chronic wound care measures. Moisturizing adequately also emphasized, patient and voiced understanding. Their questions were answered and they were advised to let us know if they have any further questions or concerns. Follow-up in 1 week or sooner if needed. This note was generated with [employer] dictation software. It may contain incorrect words, spelling, and punctuation that were not noted in checking the note before signing.
--- NOTE | 2024-09-14 09:15 | WC ---
PHOTO 09/13/24 LEFT DAVISON SUP
--- NOTE | 2024-09-14 09:18 | WC ---
PHOTO 09/13/24
== END 2024-09-14 23:59 | disposition home or self-care (01) ==
LOC: WC 09:45
PROVIDERS: PCP Preventive Medicine Occupational Medicine; Referring Provider Preventive Medicine Occupational Medicine; Visit Provider Internal Medicine
DX: S81.802A Unspecified open wound, left lower leg, initial encounter (principal); E11.9 Type 2 diabetes mellitus without complications; V58.4XXA Person boarding or alighting a pick-up truck or van injured in noncollision transport accident, initial encounter; Z79.84 Long term (current) use of oral hypoglycemic drugs; Z79.899 Other long term (current) drug therapy
CPT/HCPCS: 97597

== ENCOUNTER 2024-09-27 09:30 | Outpatient (RCR) | payer MEDICARE, BC, SELFPAY ==
[2024-09-15 02:38] VITALS: BP 156/59; PULSE 62; RESP 18; TEMP 36
[2024-09-20 09:52] VITALS: BP 169/80; PULSE 61; RESP 18; TEMP 36.1
--- NOTE | 2024-09-20 16:43 | PN.PCM_ITS ---
History of Present Illness Date of Service: 09/20/24 Chief Complaint: Left leg wound History of Wound: Ms. Mcnamara is a 74-year-old who presents to the wound center due to nonhealing left leg wound. Slipped 2 weeks ago while getting out of her son's truck. Sustained injury to her left lower extremity. Due to size, took her to the emergency room where she had it cleaned and was also given antibiotics which she states that she completed a few days ago. states that he has been cleaning it daily and applying Vaseline. They were concerned that it was not healing so presented here. History of diabetes mellitus type 2, she believes that her most recent A1c was 6.9. No tobacco a buse. Feels well for the most part. Denies chills, fever, change in bowel habit or any other concerns at this time. Progress of Wound: No acute concerns. Some improvement since her last visit. Dressing changes being done as recommended. Objective Data Objective Data Vital Signs: Vital Signs Temp Pulse Resp BP 96.9 F L 61 18 169/80 H 09/20/24 09:52 09/20/24 09:52 09/20/24 09:52 09/20/24 09:52 Charges/Coding Procedures Integumentary 111xxx-113xx: 50899 Steffany subq tissue 20 sq cm/< Physical Exam Const alert, oriented x3 and no apparent distress General Appearance: cooperative and comfortable HEENT normocephalic, head/scalp atraumatic and hearing grossly normal bilaterally Eyes EOMs intact bilaterally Neck full ROM General: normal visual inspection Resp normal respiratory effort Effort and Inspection: able to speak in complete sentences Extremity General Extremity: edema Skin Wounds: wounds noted size Size: See clinical note, bed granulating well, margins well approximated, no odor and open Neuro oriented x3, CN's II-XII intact bilaterally and moves all extremities Psych mental status grossly normal, thought process normal, cooperative and affect normal Debridement Note Debridement Note Wound debrided: Left lower extremity Type of Debridement: Excisional debridement Anesthesia Used: 5% Lidocaine Gel Depth: Down to and including healthy tissue and in the subcutaneous layer Percentage of wound debrided: 100 Instrument Used: 3mm curette Tissue Removed: Devitalized tissue Severity: Fat Layer Exposed Amount of bleeding with debridement: Mild Bleeding Controlled with: Pressure Patient tolerated procedure: Patient tolerated procedure well Post-Debridement Measurements and Additional Note: Post-Debridement Measurements/Treatment - Nurse 1 - General Ulcer Assessment Start: 09/20/24 09:52 Freq: Status: Active Protocol: JASMYNE Activity Type Activity Date Activity User E-sign Co-sign Detail Recorded Client Recorded Date Recorded By Document 09/20/24 09:52 PERCY [id number] 09/20/24 09:54 RB 09/20/24 09:52 WC - Today's Visit Information Type of service Follow-up Visit (Physician/HOSPITALIST ) Arrival Mode Ambulatory Transfer Assistance None Patient Identification Verified (Name & Yes ) Patient Requires Transmission-Based No Precautions Vital Signs Temperature (97.8 F-99.1 F) 96.9 F L Temperature Source Temporal Pulse Rate (60-100) 61 Pulse Location Monitor Respiratory Rate (12-18) 18 Respiratory rate source Observation Blood Pressure (90/60-120/80) 169/80 H Blood Pressure Mean (mm Hg) 109 Source Monitor Position Semi-Fowlers Blood Pressure Location Left Arm History Since Last Visit- (Skip if this is Patient's initial visit) Have you changed medications since your No last visit? Any new allergies or adverse reactions No Had a fall/change in ADL's that may No increase risk of falls Signs or symptoms of abuse and/or No neglect since last visit Have you been in the hospital since your No last visit? Has dressing in place as prescribed Yes Has compression in place as prescribed Yes Has offloadiing in place as prescribed N/A Experienced any changes in pain level or No management Pain Scale: 0-10 Numeric Is Patient Pain Free? Yes - Nurse 1 - General Ulcer Measurement Start: 09/20/24 09:52 Freq: Status: Active Protocol: Activity Type Activity Date Activity User E-sign Co-sign Detail Recorded Client Recorded Date Recorded By Document 09/20/24 09:52 PERCY [id number] 09/20/24 09:54 RB 09/20/24 09:52 Wound Center Nurse 1 #1 Left Superior Moreno -Combined with other wound No -Current Size (cm) - Length 0.1 -Current Size (cm) - Width 0.1 -Current Size (cm) - Depth 0.1 -Total Square Cm 0.01 -Photo Taken Yes -Tunneling No -Undermining/Tunneling No -Circular Undermining No -Exudate Amt Medium -Exudate Type Serosanguineous -Wound Margin Distinct, Outline Attached -Granulation Amt Medium (34-66%) -Granulation Quality [place] -Slough/Fibrin Yes -Necrosis Amt Small (1-33%) -Necrotic Tissue Type Adherent Slough -Structure Exposed N/A -Texture (Sheela-wound Skin Appearance) Scarring -Moisture (Sheela-wound Skin Appearance) Assessed -Color (Sheela-wound Skin Appearance) Assessed -Temperature (Sheela-wound Skin No Abnormality Appearance) (Pt Warm) -Tenderness on Palpation (Sheela-wound No Skin Appearance) -Ulcer Cleansing Wound Cleanser -Foul Odor after Cleansing No -Anesthetic Used 5% Lidocaine Gel Lower Limb Edema Present Yes Left Calf (cm) 37 Left Ankle (cm) 22 - Nurse 2 - General Ulcer CM Notes Start: 09/20/24 09:52 Freq: Status: Active Protocol: Activity Type Activity Date Activity User E-sign Co-sign Detail Recorded Client Recorded Date Recorded By Document 09/20/24 10:04 [id number] 09/20/24 10:06 09/20/24 10:04 Wound Center Nurse 2 #1 Left Superior Moreno -Time 10:05 -Correct Patient Yes -Correct Side, Site, Position Yes -Correct Procedure Yes -Procedure Performed Yes -Type of Procedure Debridement -Clinical Debridement Subcutaneous -Tissue Removed Subcutaneous -Tunneling No -Undermining/Tunneling No -Circular Undermining No -Wound/Ulcer Outcome Not Healed -Ulcer Cleansing Rinsed/ Irrigated with Saline -Foul Odor after Cleansing No -Bioengineered Tissue No -Bleeding Controlled with Pressure -Treatment Response Procedure Tolerated Well -Offloading No -Debridement - Subq, 1st 20sq cm Yes Pain Scale: 0-10 Numeric Is Patient Pain Free? Yes - Nurse 3 - General Ulcer D/C NN Start: 09/20/24 09:52 Freq: Status: Active Protocol: Activity Type Activity Date Activity User E-sign Co-sign Detail Recorded Client Recorded Date Recorded By Document 09/20/24 10:15 [id number] 09/20/24 10:31 CP 09/20/24 10:15 Wound Care Center Nurse 3 #1 Left Superior Moreno -Ulcer Cleansing Rinsed/ Irrigated with Saline -Foul Odor after Cleansing No -Primary Dressing Applied Promogran -Other Dressing adaptic -Primary Dressing Covered/Secured with Dry Gauze & Roll Gauze, Secured with Tape -Other Covering adaptic -Promogran 1 LLE -Tubular Bandage Double Layer -Size of Tubigrip Used Size E -Size E ($) 2 Pain Scale: 0-10 Numeric Is Patient Pain Free? Yes WC - Visit Discharge Discharge Condition Stable Ambulatory Status Ambulatory Transportation Private Auto Medication Reconcilliation completed & No provided to patient/care provider Clinical Summary of Care Provided Yes Assessment/Plan Assessment/Plan (1) Open wound of lower extremity with complication: CODE(S): S81.809A - Unspecified open wound, unspecified lower leg, initial encounter QUALIFIERS: Encounter type: subsequent encounter Laterality: left Qualified Code(s): S81.802D - Unspecified open wound, left lower leg, subsequent encounter PLAN: Left (2) Non-healing wound of lower extremity: CODE(S): S81.809A - Unspecified open wound, unspecified lower leg, initial encounter QUALIFIERS: Encounter type: subsequent encounter Laterality: left Qualified Code(s): S81.802D - Unspecified open wound, left lower leg, subsequent encounter PLAN: Left (3) Type 2 diabetes mellitus: CODE(S): E11.9 - Type 2 diabetes mellitus without complications PLAN: Plan Debridement done as documented above, procedure was well-tolerated. Some improvement noted since her last visit. Continue Promogran, moistened. Cover with Adaptic and gauze. Change daily. Continue double layer Tubigrip for edema management, leg elevation and exercise as tolerated. Continue other chronic wound care measures. Moisturizing adequately also emphasized, patient and voiced understanding. Their questions were answered and they were advised to let us know if they have any further questions or concerns. Follow- up in 1 week or sooner if needed. This note was generated with [employer] dictation software. It may contain incorrect words, spelling, and punctuation that were not noted in checking the note before signing.
[2024-09-27 09:28] VITALS: BP 136/61; PULSE 63; RESP 18; TEMP 36.1
--- NOTE | 2024-09-27 10:13 | PCM.WC.PN ---
History of Present Illness Date of Service: 09/27/24 Chief Complaint: Left leg wound History of Wound: Ms. Mcnamara is a 74-year-old who presents to the wound center due to nonhealing left leg wound. Slipped 2 weeks ago while getting out of her son's truck. Sustained injury to her left lower extremity. Due to size, took her to the emergency room where she had it cleaned and was also given antibiotics which she states that she completed a few days ago. states that he has been cleaning it daily and applying Vaseline. They were concerned that it was not healing so presented here. History of diabetes mellitus type 2, she believes that her most recent A1c was 6.9. No tobacco abuse. Feels well for the most part. Denies chills, fever, change in bowel habit or any other concerns at this time. Progress of Wound: No acute concerns at this time. Essentially healed. Some areas of superficial skin tear possibly during changes. Objective Data Objective Data Vital Signs: Vital Signs Temp Pulse Resp BP O2 Del Method 97 F L 63 18 136/61 H Room Air 09/27/24 09:28 09/27/24 09:28 09/27/24 09:28 09/27/24 09:28 09/27/24 09:28 Oxygen Delivery Method Room Air Charges/Coding Visit Charges Office Visits / Consults: [id number] OV L3 Est 20min Physical Exam Const alert, oriented x3 and no apparent distress General Appearance: cooperative and comfortable HEENT normocephalic, head/scalp atraumatic and hearing grossly normal bilaterally Eyes EOMs intact bilaterally Neck full ROM General: normal visual inspection Resp normal respiratory effort Effort and Inspection: able to speak in complete sentences Extremity General Extremity: edema Neuro oriented x3, CN's II-XII intact bilaterally and moves all extremities Psych mental status grossly normal, thought process normal, cooperative and affect normal Debridement Note Debridement Note No debridement was completed: No debridement was completed today Post-Debridement Measurements and Additional Note: Post-Debridement Measurements/Treatment WC - Nurse 1 - General Ulcer Assessment Start: 09/20/24 09:52 Freq: Status: Active Protocol: NACHO.[email or web address] Activity Type Activity Date Activity User E-sign Co-sign Detail Recorded Client Recorded Date Recorded By Document 09/20/24 09:52 RB [id number] 09/20/24 09:54 RB Document 09/27/24 09:28 CA [id number] 09/27/24 09:33 CA 09/20/24 09/27/24 09:52 09:28 - Today's Visit Information Type of service Follow-up Visit Follow-up Visit (Physician/ROPE RIDER (Physician/ROPE RIDER ) ) Arrival Mode Ambulatory Ambulatory Transfer Assistance None Accompanied by Patient Identification Verified (Name & Yes Yes ) Patient Requires Transmission-Based No Precautions Safety Precautions Fall Prevention Finger Stick Blood Sugar(mg/dl) (if 125 indicated): Vital Signs Temperature (97.8 F-99.1 F) 96.9 F L 97 F L Temperature Source Temporal Temporal Pulse Rate (60-100) 61 63 Pulse Location Monitor Monitor Respiratory Rate (12-18) 18 18 Respiratory rate source Observation Observation Oxygen Delivery Method Room Air Blood Pressure (90/60-120/80) 169/80 H 136/61 H Blood Pressure Mean (mm Hg) 109 86 Source Monitor Monitor Position Semi-Fowlers Sitting Blood Pressure Location Left Arm Left Arm History Since Last Visit- (Skip if this is Patient's initial visit) Have you changed medications since your No last visit? Any new allergies or adverse reactions No Had a fall/change in ADL's that may No increase risk of falls Signs or symptoms of abuse and/or No neglect since last visit Have you been in the hospital since your No last visit? Has dressing in place as prescribed Yes Yes Has compression in place as prescribed Yes Yes Has offloadiing in place as prescribed N/A Yes Experienced any changes in pain level or No Yes management Left Footwear Regular Shoe Right Footwear Regular Shoe Pain Scale: 0-10 Numeric Is Patient Pain Free? Yes Yes - Nurse 1 - General Ulcer Measurement Start: 09/20/24 09:52 Freq: Status: Active Protocol: Activity Type Activity Date Activity User E-sign Co-sign Detail Recorded Client Recorded Date Recorded By Document 09/20/24 09:52 [id number] 09/20/24 09:54 RB Document 09/27/24 09:28 CA [id number] 09/27/24 09:33 CA 09/20/24 09/27/24 09:52 09:28 Wound Center Nurse 1 #1 Left Superior Moreno -Combined with other wound No -Current Size (cm) - Length 0.1 0.1 -Current Size (cm) - Width 0.1 0.1 -Current Size (cm) - Depth 0.1 0.1 -Total Square Cm 0.01 0.01 -Date of Last Picture (Recall this 09/27/24 field) -Photo Taken Yes Yes -Epithelialization Large 67-100% -Tunneling No No -Undermining/Tunneling No No -Circular Undermining No No -Exudate Amt Medium Medium -Exudate Type Serosanguineous Serosanguineous -Wound Margin Distinct, Flat & Intact Outline Attached -Granulation Amt Medium (34-66%) Large (67-100%) -Granulation Quality [place] Pale,[place] -Slough/Fibrin Yes -Necrosis Amt Small (1-33%) None Present (0 %) -Necrotic Tissue Type Adherent Slough -Structure Exposed N/A -Texture (Sheela-wound Skin Appearance) Scarring Assessed -Moisture (Sheela-wound Skin Appearance) Assessed Assessed -Color (Sheela-wound Skin Appearance) Assessed Assessed -Temperature (Sheela-wound Skin No Abnormality No Abnormality Appearance) (Pt Warm) (Pt Warm) -Tenderness on Palpation (Sheela-wound No No Skin Appearance) -Ulcer Cleansing Wound Cleanser Soap and Water -Foul Odor after Cleansing No No -Anesthetic Used 5% Lidocaine 5% Lidocaine Gel Gel Lower Limb Edema Present Yes NA Left Calf (cm) 37 Left Ankle (cm) 22 WC - Nurse 2 - General Ulcer CM Notes Start: 09/20/24 09:52 Freq: Status: Active Protocol: Activity Type Activity Date Activity User E-sign Co-sign Detail Recorded Client Recorded Date Recorded By Document 09/20/24 10:04 [id number] 09/20/24 10:06 Document 09/27/24 09:41 [id number] 09/27/24 09:46 09/20/24 09/27/24 10:04 09:41 Wound Center Nurse 2 #1 Left Superior Moreno -Time 10:05 09:41 -Correct Patient Yes Yes -Correct Side, Site, Position Yes Yes -Correct Procedure Yes No -Procedure Performed Yes No -Type of Procedure Debridement -Clinical Debridement Subcutaneous -Tissue Removed Subcutaneous -Tunneling No No -Undermining/Tunneling No No -Circular Undermining No No -Wound/Ulcer Outcome Not Healed Healed- Epithelialized -Ulcer Cleansing Rinsed/ Not Cleansed Irrigated with Saline -Foul Odor after Cleansing No No -Bioengineered Tissue No No -Bleeding Controlled with Pressure NA -Treatment Response Procedure Tolerated Well -Offloading No No -Debridement - Subq, 1st 20sq cm Yes Pain Scale: 0-10 Numeric Is Patient Pain Free? Yes Yes - Nurse 3 - General Ulcer D/C NN Start: 09/20/24 09:52 Freq: Status: Active Protocol: Activity Type Activity Date Activity User E-sign Co-sign Detail Recorded Client Recorded Date Recorded By Document 09/20/24 10:15 CP [id number] 09/20/24 10:31 CP Document 09/27/24 09:51 MT [id number] 09/27/24 09:52 CA 09/20/24 09/27/24 10:15 09:51 Wound Care Center Nurse 3 #1 Left Superior Moreno -Ulcer Cleansing Rinsed/ Irrigated with Saline -Foul Odor after Cleansing No -Primary Dressing Applied Promogran -Other Dressing adaptic vaseline, adaptic -Primary Dressing Covered/Secured with Dry Gauze & Dry Gauze & Roll Gauze, Roll Gauze, Secured with Secured with Tape Tape -Other Covering adaptic -Promogran 1 LLE -Tubular Bandage Double Layer -Size of Tubigrip Used Size E -Size E ($) 2 Pain Scale: 0-10 Numeric Is Patient Pain Free? Yes Yes - Visit Discharge Discharge Condition Stable Ambulatory Status Ambulatory Transportation Private Auto Medication Reconcilliation completed & No provided to patient/care provider Clinical Summary of Care Provided Yes Assessment/Plan Assessment/Plan (1) Open wound of lower extremity with complication: CODE(S): S81.809A - Unspecified open wound, unspecified lower leg, initial encounter QUALIFIERS: Encounter type: subsequent encounter Laterality: left Qualified Code(s): S81.802D - Unspecified open wound, left lower leg, subsequent encounter PLAN: Left (2) Non-healing wound of lower extremity: CODE(S): S81.809A - Unspecified open wound, unspecified lower leg, initial encounter QUALIFIERS: Encounter type: subsequent encounter Laterality: left Qualified Code(s): S81.802D - Unspecified open wound, left lower leg, subsequent encounter PLAN: Left (3) Type 2 diabetes mellitus: CODE(S): E11.9 - Type 2 diabetes mellitus without complications PLAN: Plan No debridement completed today. As above, essentially healed. Some minor areas of superficial skin tear. Advised that they apply Vaseline daily, copious amount. Cover with Adaptic and gauze, change daily. Keep area protected and covered for at least 3 weeks, patient and voiced understanding. Continue double layer Tubigrip for edema management, leg elevation and exercise as tolerated. Their questions were answered and they were advised to let us know if they have any further questions or concerns. Discharge from the wound care center. This note was generated with [employer] dictation software. It may contain incorrect words, spelling, and punctuation that were not noted in checking the note before signing.
--- NOTE | 2024-09-28 12:08 | WC ---
PHOTO 09/27/24 LEFT DAVISON SUP
== END 2024-10-15 16:18 | disposition home or self-care (01) ==
LOC: WC 09:30
PROVIDERS: PCP Preventive Medicine Occupational Medicine; Referring Provider Preventive Medicine Occupational Medicine; Visit Provider Internal Medicine
DX: S81.812A Laceration without foreign body, left lower leg, initial encounter (principal); E11.9 Type 2 diabetes mellitus without complications; V58.4XXA Person boarding or alighting a pick-up truck or van injured in noncollision transport accident, initial encounter
CPT/HCPCS: 11042; 99213; G0463

== ENCOUNTER → 2025-07-05 | Outpatient (CLI) | payer MEDICARE, BC, SELFPAY ==
--- NOTE | 2025-07-05 08:39 | MRI_ITS ---
PROCEDURE: SPINE LUMBAR (ROUTINE) 07/05/2025 REASON FOR EXAM: STENOSIS/CLAUDICATION WORSENING X1 YEAR TECHNIQUE: Procedure Code: MRISPL Modality: MR Procedure: SPINE LUMBAR (ROUTINE) COMPARISON: None available. FINDINGS: For the purposes of this report, the most caudal rectangular vertebral body will be designated L5. The next most caudal trapezoidal shaped vertebral body will be designated S1. The intervening disc at the lumbosacral angle is designated L5-S1. The normal lumbar lordosis is maintained. Mild compression deformity of the L3 superior endplate with associated bone marrow edema. The remaining lumbar vertebral bodies are normal in height. Grade 1 L2- L3 anterolisthesis. Trace L5-S1 anterolisthesis. The lumbar bone marrow signal is within normal limits. Multilevel disc desiccation and intervertebral disc space height loss. There is no evidence of signal abnormality in the imaged distal spinal cord. The conus medullaris terminates at the level of L1. T12-L1: No significant spinal canal stenosis or neural foraminal narrowing. L1-L2: Disc bulge flattens the ventral thecal sac. Bilateral facet arthrosis and ligamentum flavum hypertrophy. No significant neural foraminal narrowing. L2-L3: Uncovering of the disc, bilateral facet arthrosis, and ligamentum flavum hypertrophy. Moderate spinal canal stenosis. Mild left neural foraminal narrowing. Intact right neural foramen. L3-L4: Disc bulge, bilateral facet arthrosis, and ligamentum flavum hypertrophy contribute to mild spinal canal stenosis. The bilateral traversing nerve roots abut the disc. Mild right neural foraminal narrowing. Intact left neural foramen. L4-L5: No significant spinal canal stenosis or neural foraminal narrowing. L5-S1: Disc bulge, bilateral facet arthrosis, ligamentum flavum hypertrophy. No significant spinal canal stenosis or neural foraminal narrowing. There is fatty atrophy of the posterior paraspinal muscles. MRI/Spine Lumbar (Routine) IMPRESSION: 1. Subacute compression fracture of L3 vertebral body. 2. Lumbar spondylosis without high-grade spinal canal or neural foraminal steno sis most prominent at L2-L3. 3. Additional details as discussed above. Reading Location: [id number]
== END | disposition home or self-care (01) ==
PROVIDERS: Referring Provider Student in an Organized Health Care Education/Training Program; Visit Provider Student in an Organized Health Care Education/Training Program
DX: M48.062 Spinal stenosis, lumbar region with neurogenic claudication (principal)
CPT/HCPCS: 72148